=== PATIENT | female | born 1945 | race Caucasian/White ===

== ENCOUNTER 2017-01-21 14:14 | Inpatient (IN) | payer MEDICARE, MEDICAID ==
[~2017-01-21] VITALS: Ht 162.6 cm; Wt 45.0 kg
[2017-01-21] VITALS (26 sets, daily range): BP systolic 91–217; BP diastolic 55–137; PULSE 73–129; RESP 12–22; TEMP 97.6–98.5; O2SAT 95–100
[2017-01-21] MEDS ORDERED: ETOMIDATE 20 MG/10 ML VIAL ONE (14:34)
[2017-01-21] MEDS ORDERED: SUCCINYLCHOLINE CHLORIDE 200 MG/10 ML VIAL ONE (14:34)
[2017-01-21] MEDS ORDERED: PROPOFOL 1000 MG/100 ML INJ 100 ML IV SCH ×2 (14:45→20:00)
[2017-01-21] MEDS ORDERED: ETOMIDATE 20 MG/10 ML VIAL IVP ONE (14:45)
[2017-01-21] MEDS ORDERED: SODIUM CHLORIDE 0.9% FLUSH 10 ML FLUSH IVF PRN (14:45)
--- NOTE | 2017-01-21 14:59 | PD ---
HPI Chief Complaint: Psychiatric Symptoms Time Seen by Provider: 14:44 Travel History International Travel<30 days: No Contact w/Intl Traveler<30days: No Traveled to known affect area: No History of Present Illness HPI The patient was seen and examined in the presence of the nurse. This patient is brought in by paramedics under police [place] act for suicidal ideation. She apparently is depressed and wanted to kill herself. Today she drank a lot of alcohol and took a handful of Benadryl. It's unclear how many she took and at what time. She was sedated drowsy when paramedics found her but progressively worsened. She cannot provide any history or review of systems. She is unresponsive when I evaluate her. Symptoms are severe. No alleviating factors. Duration is unknown but estimating 2 hours PFSH Past Medical History Medical History: Unable to Obtain Cerebrovascular Accident: Yes Tetanus Vaccination: Unknown Influenza Vaccination: No ?: Not Past Surgical History Surgical History: Unable to Obtain Social History Alcohol Use: Yes Tobacco Use: No Substance Use: Yes (ADMITTED TO OVERUSING BENADRYL TODAY ) Allergies-Medications (Allergen,Severity, Reaction): Coded Allergies: No Known Allergies (Unverified , 01/21/17) Review of Systems ROS Limitations: Clinical Condition, Intoxication, Altered Mental Status, Unresponsive Physical Exam Narrative GENERAL: Well-nourished, well-developed patient who is unresponsive . SKIN: Focused skin assessment reveals no rash and nodules. Skin is Warm and dry. HEAD: Atraumatic. Normocephalic. EYES: Pupils equal and round. No scleral icterus. No injection or drainage. ENT: No nasal bleeding or discharge. Mucous membranes pink and moist. NECK: Trachea midline. No JVD. CARDIOVASCULAR: Regular rate and rhythm. No murmur appreciated. RESPIRATORY: No accessory muscle use. Clear to auscultation. Breath sounds equal bilaterally. GASTROINTESTINAL: Abdomen soft, non-tender, nondistended. Hepatic and splenic margins not palpable. MUSCULOSKELETAL: No obvious deformities. No clubbing. No cyanosis. No edema. NEUROLOGICAL: Patient has a GCS of 6. She withdraws to pain stimuli. She does not open her eyes or speak at all. She has no gag reflex. She cannot control her airway PSYCHIATRIC: Impossible to test mood or affect. Insight and judgment are poor . Data Data Last Documented VS Vital Signs Date Time Temp Pulse Resp B/P Pulse Ox O2 Delivery O2 Flow Rate FiO2 8/9/17 16:30 110 12 208/118 100 Ventilator 100 01/21/17 14:37 98.5 Orders Etomidate Inj (Amidate Inj) (01/21/17 14:34) Succinylcholine Inj (Quelicin Inj) (01/21/17 14:34) Chest, Single Ap (01/21/17 14:45) Arterial Blood Gas (Abg) (01/21/17 14:45) Ecg Monitoring (01/21/17 14:45) Iv Access Insert/Monitor (01/21/17 14:45) Ng Gastric Tube Insert/Monitor (01/21/17 14:45) Urinary Catheter Insert/Apply (01/21/17 14:45) Oximetry (01/21/17 14:45) Oxygen Administration (01/21/17 14:45) Etomidate Inj (Amidate Inj) (01/21/17 14:45) Sodium Chloride 0.9% Flush (Ns Flush) (01/21/17 14:45) Propofol 1000 Mg/100 Ml Inj (Diprivan 10 (01/21/17 14:45) ^ Infusion (01/21/17 14:45) RASS (01/21/17 14:45) Neurological Rass Scale YEVGENIY.Q2H (01/21/17 14:45) Iv Access Insert/Monitor (01/21/17 14:45) Complete Blood Count With Diff (01/21/17 14:45) Comprehensive Metabolic Panel (01/21/17 14:45) Alcohol (Ethanol) (01/21/17 14:45) Drug Screen, Random Urine (01/21/17 14:45) Salicylates (Aspirin) (01/21/17 14:45) Tylenol (Acetaminophen) (01/21/17 14:45) Psych Screen (01/21/17 14:49) Electrocardiogram (01/21/17 ) Admit Order (Ed Use Only) (01/21/17 16:54) Labs Laboratory Tests Test 01/21/17 01/21/17 14:50 15:36 White Blood Count 6.8 TH/MM3 Red Blood Count 5.00 MIL/MM3 Hemoglobin 15.8 GM/DL Hematocrit 47.0 % Mean Corpuscular Volume 94.0 FL Mean Corpuscular Hemoglobin 31.6 PG Mean Corpuscular Hemoglobin 33.6 % Concent Red Cell Distribution Width 13.5 % Platelet Count 212 TH/MM3 Mean Platelet Volume 7.0 FL Neutrophils (%) (Auto) 46.9 % Lymphocytes (%) (Auto) 43.1 % Monocytes (%) (Auto) 7.7 % Eosinophils (%) (Auto) 1.3 % Basophils (%) (Auto) 1.0 % Neutrophils # (Auto) 3.2 TH/MM3 Lymphocytes # (Auto) 2.9 TH/MM3 Monocytes # (Auto) 0.5 TH/MM3 Eosinophils # (Auto) 0.1 TH/MM3 Basophils # (Auto) 0.1 TH/MM3 CBC Comment DIFF FINAL Differential Comment Sodium Level 139 MEQ/L Potassium Level 3.1 MEQ/L Chloride Level 104 MEQ/L Carbon Dioxide Level 23.6 MEQ/L Anion Gap 11 MEQ/L Blood Urea Nitrogen 5 MG/DL Creatinine 0.52 MG/DL Estimat Glomerular Filtration 116 ML/MIN Rate Random Glucose 53 MG/DL Calcium Level 8.8 MG/DL Total Bilirubin 0.2 MG/DL Aspartate Amino Transf 31 U/L (AST/SGOT) Alanine Aminotransferase 40 U/L (ALT/SGPT) Alkaline Phosphatase 48 U/L Total Protein 7.6 GM/DL Albumin 3.8 GM/DL Salicylates Level 4.2 MG/DL Acetaminophen Level LESS THAN 2.0 MCG/ML Ethyl Alcohol Level 251 MG/DL Blood Gas Puncture Site LT BRACHIAL Blood Gas Patient Temperature 98.6 Blood Gas HCO3 20 mmol/L Blood Gas Base Excess -4.0 mmol/L Blood Gas Oxygen Saturation 97 % Arterial Blood pH 7.42 Arterial Blood Partial 31 mmHg Pressure CO2 Arterial Blood Partial 438 mmHG Pressure O2 Arterial Blood Oxygen Content 21.4 Vol % Arterial Blood 2.0 % Carboxyhemoglobin Arterial Blood Methemoglobin 0.6 % Blood Gas Hemoglobin 14.8 G/DL Oxygen Delivery Device VENTILATOR Blood Gas Ventilator Setting AC 12/500/PEEP5 Blood Gas Inspired Oxygen 100 % [facility] Medical Decision Making Medical Screen Exam Complete: Yes Emergency Medical Condition: Yes Medical Record Reviewed: Yes Differential Diagnosis Suicidal ideation, alcohol intoxication, Benadryl overdose, unable to control airway Narrative Course I have reviewed the patient's electronic medical record. INTUBATION: The patient was put in optimal position for the procedure. Rapid sequence intubation was initiated by me using 20 milligrams of etomidate IV. The patient was intubated with a 7.5 cuffed endotracheal tube. Tube placement was confirmed by visualization of the tube and balloon passing through the cords , capnometry and subsequent chest x-ray. Breath sounds were equal and well aerated bilaterally postintubation. No breath sounds over stomach. Patient tolerated procedure well. Saturation after intubation 100%. I reviewed the chest x-ray which shows good placement of ET tube and clear lungs 2 IVs placed CBC is normal Metabolic profile is normal other than hypokalemia of 3.1 LFTs are normal Alcohol is 251 ABG shows good oxygenation. I decreased the FiO2 to 50% after review of ABG Tylenol is negative Aspirin is 4.2 Urine drug screen ordered and pending Ordered psychiatric evaluation but obviously this cannot be done for while and she is sedated on a ventilator. She will require intensive care admission. Extended cardiac monitoring shows sinus tachycardia around 110 without ectopy I reviewed her EKG which shows sinus rhythm without ectopy or ST elevation Initially very hypertensive. I placed her on Diprivan drip. blood pressure exceeds 200 systolic.on recheck 152 systolic. Call placed to hydramatic mechanic to discuss Multiple rechecks and significant bedside time spent Critical Care Narrative Aggregate critical care time was 80 minutes. Time to perform other separately billable procedures was not included in the critical care time. My time did not include minutes spent treating any other patients simultaneously or on activities that did not directly contribute to the patient's treatment. The services I provided to this patient were to treat and/or prevent clinically significant deterioration that could result in: Brain stem herniation, cardiac arrhythmia, cardiopulmonary arrest I provided critical care services requiring my management, as noted below: Chart data review, documentation time, medication orders and management, vital sign assessments/reviewing monitor data, ordering and reviewing lab tests, ordering and interpreting/reviewing x-rays and diagnostic studies, care of the patient and discussion of the patient with the admitting physicians. Diagnosis Primary Impression: Unresponsive state Additional Impressions: Toxic encephalopathy Airway compromise Admitting Information Admitting Physician Requests: Adilson Navarro MD Jan 21, 2017 14:59
--- NOTE | 2017-01-21 15:14 | RADRPT ---
EXAM DATE/TIME: 01/21/2017 14:58 [facility] COMPARISON: No previous studies available for comparison. INDICATIONS : Short of breath. MEDICAL HISTORY : unobtainable. SURGICAL HISTORY : None. Unobtainable ENCOUNTER: Initial ACUITY: 1 day PAIN SCORE: Non-responsive. LOCATION: Bilateral chest FINDINGS: ET tube and nasogastric tube are in good position. Lungs are clear. The heart and pulmonary vascular ity are normal. The portion of the bony skeleton visualized is unremarkable. CONCLUSION: ET tube position. Mahad Carlton MD FACR on January 21, 2017 at 15:12 Board Certified Radiologist. This report was verified electronically.
[2017-01-21 15:22] LABS: AUTOMATED NEUTROPHIL # 3.2 TH/MM3 (1.8-7.7); BASOPHIL # 0.1 TH/MM3 (0-0.2); EOSINOPHIL # 0.1 TH/MM3 (0-0.4); EOSINOPHIL % 1.3 % (0.0-4.0); HEMO FLAGS DIFF FINAL; LYMPH % 43.1 % (9.0-44.0); LYMPHOCYTE # 2.9 TH/MM3 (1.0-4.8); MEAN CORPUSCULAR HEMOGLOBIN 31.6 PG (27.0-34.0); MEAN CORPUSCULAR HGB CONC 33.6 % (32.0-36.0); MONO % 7.7 % (0.0-8.0); NEUT % 46.9 % (16.0-70.0); PLATELET COUNT 212 TH/MM3 (150-450); RED CELL DISTRIBUTION WIDTH 13.5 % (11.6-17.2); WHITE BLOOD COUNT 6.8 TH/MM3 (4.0-11.0)
[2017-01-21 15:37] LABS: ANION GAP 11 MEQ/L (5-15); AST (GOT) 31 U/L (15-37); BICARBONATE 23.6 MEQ/L (21.0-32.0); BLOOD UREA NITROGEN 5 MG/DL (7-18); CHLORIDE 104 MEQ/L (98-107); GLOMERULAR FILTRATION RATE 116 ML/MIN (>89); POTASSIUM 3.1 MEQ/L (3.5-5.1); SODIUM (NA) 139 MEQ/L (136-145)
[2017-01-21 15:40] LABS: ALKALINE PHOSPHATASE 48 U/L (45-117); ALT (GPT) 40 U/L (10-53); TOTAL BILIRUBIN ADULT 0.2 MG/DL (0.2-1.0)
[2017-01-21 15:53] LABS: ACETAMINOPHEN LESS THAN 2.0 MCG/ML (10.0-30.0)
[2017-01-21 16:03] LABS: BLOOD GAS HCO3 20 mmol/L (22-26); BLOOD GAS METHEMOGLOBIN 0.6 % (0-2); BLOOD GAS O2 HGB SATURATION 97 % (90-100); BLOOD GAS OXYGEN CONTENT 21.4 Vol % (12.0-20.0); BLOOD GAS PCO2 31 mmHg (38-42); BLOOD GAS PO2 438 mmHG (61-120); BLOOD GAS TOTAL HGB 14.8 G/DL (12.0-16.0); CRITICAL VALUE NO; DRAW SITE LT BRACHIAL; FIO2 100 %; NUMBER OF ARTERIAL PUNCTURES 1; OXYGEN DEVICE VENTILATOR; STAT YES; TEMP CORR TO 98.6; ULNAR PULSE PRESENT; VENT SETTINGS AC 12/500/PEEP5
[2017-01-21] MEDS ORDERED: SODIUM CHLOR 0.9% 1000 ML INJ 1,000 ML IV SCH (17:56)
[2017-01-21] MEDS ORDERED: MISCELLANEOUS NURSING INFORMATION XX SCH ×2 (18:00→19:45)
[2017-01-21] MEDS ORDERED: RESP: ALBUTEROL 2.5 MG/IPRATROPIUM 0.5 MG NEB (PRN) INH ×2 (18:00→19:45)
[2017-01-21] MEDS ORDERED: ACETAMINOPHEN 325 MG TAB PO PRN ×2 (18:00→19:45)
[2017-01-21] MEDS ORDERED: CHLORHEXIDINE GLUCONATE 2 % 1 PACK (2 CLOTHS) TOP PRN ×2 (18:00→19:45)
[2017-01-21 18:35] LABS: AMPHETAMINE, URINE NEG (NEG); BARBITURATES, URINE NEG (NEG); COCAINE, URINE NEG (NEG)
[2017-01-21] MEDS: ENOXAPARIN SODIUM 40 MG/0.4 ML SYRINGE SQ SCH (19:25)
[2017-01-21] MEDS ORDERED: MAGNESIUM OXIDE 400 MG TAB PO PRN (19:45)
[2017-01-21] MEDS ORDERED: POTASSIUM CHLOR 40 MEQ PREMIX 100 ML IV PRN ×2 (19:45)
[2017-01-21] MEDS ORDERED: SODIUM PHOSPHATE INJ 30 MMOL in SODIUM CHLOR 0.9% 250 ML INJ 240 ML IV PRN (19:45)
[2017-01-21] MEDS ORDERED: DEXTROSE 50% IN WATER 50 ML VIAL(D50) IV PUSH PRN (19:45)
[2017-01-21] MEDS ORDERED: MAGNESIUM SULFATE INJ 4 GM in SODIUM CHLORIDE 0.9% INJ 92 ML IV PRN (19:45)
[2017-01-21] MEDS ORDERED: POTASSIUM PHOSPHATE INJ 30 MMOL in SODIUM CHLOR 0.9% 250 ML INJ 250 ML IV PRN (19:45)
[2017-01-21] MEDS ORDERED: POTASSIUM CHLOR 20 MEQ PREMIX 100 ML IV PRN ×2 (19:45)
[2017-01-21] MEDS ORDERED: ONDANSETRON HCL 4 MG/2 ML VIAL IV PRN (19:45)
[2017-01-21] MEDS ORDERED: POTASSIUM PHOSPHATE MONOBASIC 500 MG TAB PO/TUBE PRN (19:45)
[2017-01-21] MEDS ORDERED: MAGNESIUM SULFATE INJ 2 GM in SODIUM CHLORIDE 0.9% INJ 96 ML IV PRN (19:45)
[2017-01-21] MEDS ORDERED: POTASSIUM PHOSPHATE MONOBASIC 500 MG TAB PO PRN (19:45)
[2017-01-21] MEDS ORDERED: LACTATED RINGER'S 1000 ML INJ 1,000 ML IV ONE (19:45)
--- NOTE | 2017-01-21 19:53 | HHI.HP ---
HPI Service Critical Care Medicine Primary Care Physician No Primary Care Physician Admission Diagnosis unresponsive, unable to control airway,intentional OD, BA Diagnosis: Chief Complaint: altered mental status Travel History International Travel<30 Days: No Contact w/Intl Traveler <30 Da: No Traveled to Known Affected Are: No History of Present Illness This is a 71-year-old female who per report was brought in by EMS after she admitted to taking it handful of Benadryl and drinking alcohol in an attempt to kill herself. She was somnolent in the emergency department and was intubated for worsening acute hypoxic and hypercarbic respiratory failure. I evaluated the patient emergency department and no additional information can be obtained from the patient as she is obtunded and intubated. Review of Systems ROS Limitations: Clinical Condition, Intoxication, Intubated, Altered Mental Status, Unresponsive Past Family Social History Allergies: Coded Allergies: No Known Allergies (Unverified , 01/21/17) Past Medical History Unknown and unobtainable secondary to the clinical condition of the patient Past Surgical History Unknown and unobtainable secondary to the clinical condition of the patient Reported Medications Unknown and unobtainable secondary to the clinical condition of the patient Active Ordered Medications See MAR Family History Unknown and unobtainable secondary to the clinical condition of the patient Social History Unknown and unobtainable secondary to the clinical condition of the patient Physical Exam Vital Signs Vital Signs Date Time Temp Pulse Resp B/P Pulse Ox O2 Delivery O2 Flow Rate FiO2 01/21/17 19:43 88 12 147/72 100 Ventilator 50 01/21/17 19:21 100 40 01/21/17 19:00 82 12 91/65 100 Ventilator 50 01/21/17 18:59 40 01/21/17 18:51 100 40 01/21/17 18:30 102 12 172/112 100 Ventilator 50 01/21/17 18:00 97 12 100/67 100 Ventilator 50 01/21/17 17:45 104 12 111/60 100 Ventilator 50 01/21/17 17:30 101 12 190/105 100 Ventilator 50 01/21/17 17:00 81 12 107/55 100 Ventilator 100 01/21/17 16:30 110 12 208/118 100 Ventilator 100 01/21/17 16:00 112 12 217/125 100 Ventilator 100 01/21/17 15:47 100 50 01/21/17 15:40 50 01/21/17 15:30 100 12 177/104 100 Ventilator 100 01/21/17 15:00 110 12 201/125 100 Ventilator 100 01/21/17 15:00 100 01/21/17 14:45 100 100 01/21/17 14:41 12 100 Ventilator 100 01/21/17 14:41 100 Ventilator 100 01/21/17 14:37 121 6 01/21/17 14:37 98.5 129 18 212/137 95 Room Air 01/21/17 14:21 97.6 125 22 215/117 96 Physical Exam GENERAL: Elderly female, lying in bed, intubated, sedated, obtunded, critically ill HEENT: Normocephalic. Atraumatic. Pupils equal, round, reactive, conjugate. Mucous membranes are moist NECK: Trachea is midline. There is no JVD. CHEST: Equal chest rise. Clear to auscultation bilaterally. Full vent support. FiO2 40% CARDIOVASCULAR: Tachycardic rate, regular rhythm. No appreciable murmurs. ABDOMEN: Soft, nontender, nondistended. No guarding. MUSCULOSKELETAL: Pulses 2+. No peripheral edema. NEUROLOGICAL: RASS -4. Grimaces to painful stimuli. Does not open eyes. Withdrawals 4. Does not follow commands. Laboratory Laboratory Tests Test 01/21/17 01/21/17 14:50 15:36 White Blood Count 6.8 Red Blood Count 5.00 Hemoglobin 15.8 Hematocrit 47.0 Mean Corpuscular Volume 94.0 Mean Corpuscular Hemoglobin 31.6 Mean Corpuscular Hemoglobin 33.6 Concent Red Cell Distribution Width 13.5 Platelet Count 212 Mean Platelet Volume 7.0 Neutrophils (%) (Auto) 46.9 Lymphocytes (%) (Auto) 43.1 Monocytes (%) (Auto) 7.7 Eosinophils (%) (Auto) 1.3 Basophils (%) (Auto) 1.0 Neutrophils # (Auto) 3.2 Lymphocytes # (Auto) 2.9 Monocytes # (Auto) 0.5 Eosinophils # (Auto) 0.1 Basophils # (Auto) 0.1 CBC Comment DIFF FINAL Differential Comment Sodium Level 139 Potassium Level 3.1 Chloride Level 104 Carbon Dioxide Level 23.6 Anion Gap 11 Blood Urea Nitrogen 5 Creatinine 0.52 Estimat Glomerular Filtration 116 Rate Random Glucose 53 Calcium Level 8.8 Total Bilirubin 0.2 Aspartate Amino Transf 31 (AST/SGOT) Alanine Aminotransferase 40 (ALT/SGPT) Alkaline Phosphatase 48 Total Protein 7.6 Albumin 3.8 Salicylates Level 4.2 Urine Opiates Screen NEG Acetaminophen Level LESS THAN 2.0 Urine Barbiturates Screen NEG Urine Amphetamines Screen NEG Urine Benzodiazepines Screen NEG Urine Cocaine Screen NEG Urine Cannabinoids Screen NEG Ethyl Alcohol Level 251 Blood Gas Puncture Site LT BRACHIAL Blood Gas Patient Temperature 98.6 Blood Gas HCO3 20 Blood Gas Base Excess -4.0 Blood Gas Oxygen Saturation 97 Arterial Blood pH 7.42 Arterial Blood Partial 31 Pressure CO2 Arterial Blood Partial 438 Pressure O2 Arterial Blood Oxygen Content 21.4 Arterial Blood 2.0 Carboxyhemoglobin Arterial Blood Methemoglobin 0.6 Blood Gas Hemoglobin 14.8 Oxygen Delivery Device VENTILATOR Blood Gas Ventilator Setting AC 12/500/PEEP5 Blood Gas Inspired Oxygen 100 Result Diagram: 01/21/17 1450 01/21/17 1450 Imaging Last Impressions Chest X-Ray 01/21/17 1445 Signed Impressions: Service Date/Time: Saturday, January 21, 2017 14:58 - CONCLUSION: ET tube position. Mahad Carlton MD FACR Assessment and Plan Assessment and Plan Assessment: 71-year-old female with suicide attempt EtOH and Benadryl overdose. Toxic encephalopathy. Very critically ill. Toxic Encephalopathy Benadryl overdose -- q1h neuro checks -- avoid long-acting sedating meds Acute hypoxic and hypercarbic respiratory failure -- no sbt given mental status -- hob at 30 degrees -- vent bundle -- wean fio2 for spo2 > 90% -- nebs Alcohol dependence -- iv thiamine -- iv vitamins -- watch for withdraw. Intravascular volume depletion -- 2L LR bolus -- LR mivf @ 150cc/hr -- watch uop Suicidal Ideation/Suicide Attempt -- will need psych consult once extubated -- [place] Act in place start TF SCDs Lovenox pepcid Critical Care time: 40 minutes, exclusive of separately billable procedures. Kevin Helm MD Jan 21, 2017 19:53
[2017-01-21] MEDS ORDERED: fentaNYL DRIP 250 ML IV SCH (20:00)
[2017-01-21] MEDS ORDERED: CHLORHEXIDINE 0.12% (ORAL KIT) 15 ML CUP MT SCH (20:00)
[2017-01-21] MEDS: CHLORHEXIDINE 0.12% (ORAL KIT) 15 ML CUP MT SCH (20:00)
--- NOTE | 2017-01-21 20:38 | RADRPT ---
EXAM DATE/TIME: 01/21/2017 19:56 [facility] COMPARISON: No previous studies available for comparison. INDICATIONS : Suicide attempt,unresponsive RADIATION DOSE: 30.92 CTDIvol (mGy) MEDICAL HISTORY : Cerebrovascular disease. SURGICAL HISTORY : None. ENCOUNTER: Initial ACUITY: 1 day PAIN SCALE: Non-responsive LOCATION: cranial TECHNIQUE: Multiple contiguous axial images were obtained of the head. Using automated exposure control and adj ustment of the mA and/or kV according to patient size, radiation dose was kept as low as reasonably a chievable to obtain optimal diagnostic quality images. DICOM format image data is available electro nically for review and comparison. FINDINGS: CEREBRUM: The ventricles are normal for age. No evidence of midline shift, mass lesion, hemorrhage or acute in farction. No extra-axial fluid collections are seen. POSTERIOR FOSSA: The cerebellum and brainstem are intact. The 4th ventricle is midline. The cerebellopontine angle i s unremarkable. EXTRACRANIAL: The visualized portion of the orbits is intact. SKULL: The calvaria is intact. No evidence of skull fracture. CONCLUSION: Normal examination for a patient of this age. Supa To MD on January 21, 2017 at 20:32 Board Certified Radiologist. This report was verified electronically.
[2017-01-21] MEDS: LACTATED RINGER'S 1000 ML INJ 1,000 ML IV SCH (20:58)
[2017-01-21] MEDS ORDERED: MULTIVITAMIN INJ 10 ML, THIAMINE INJ 100 MG, FOLIC ACID INJ 1 MG in SODIUM CHLOR 0.45% ... IV ONE (21:00)
[2017-01-21] MEDS ORDERED: ENOXAPARIN SODIUM 40 MG/0.4 ML SYRINGE SQ SCH (21:00)
[2017-01-21] MEDS ORDERED: RESP: ALBUTEROL 2.5 MG/IPRATROPIUM 0.5 MG NEB (SCH) NEB (22:00)
[2017-01-22] VITALS (29 sets, daily range): BP systolic 99–172; BP diastolic 56–87; PULSE 57–111; RESP 15–27; TEMP 97.5–98.3; O2SAT 96–100
[2017-01-22] MEDS ORDERED: THIAMINE INJ 100 MG in SODIUM CHLORIDE 0.9% INJ 100 ML IV SCH (01:45)
[2017-01-22] MEDS: RESP: ALBUTEROL 2.5 MG/IPRATROPIUM 0.5 MG NEB (SCH) INH ×4 (03:27→21:51)
[2017-01-22] MEDS ORDERED: CHLORHEXIDINE GLUCONATE 2 % 1 PACK (2 CLOTHS) TOP SCH ×2 (04:00)
--- NOTE | 2017-01-22 04:55 | RADRPT ---
EXAM DATE/TIME: 01/22/2017 03:27 [facility] COMPARISON: CHEST SINGLE AP, January 21, 2017, 14:58. INDICATIONS : Shortness of breath. MEDICAL HISTORY : Cerebrovascular disease. SURGICAL HISTORY : None. ENCOUNTER: Subsequent ACUITY: 2 days PAIN SCORE: Non-responsive. LOCATION: Bilateral chest FINDINGS: Hyperinflation again seen. Endotracheal tube and enteric tube again noted. Cardiomegaly. Clear lungs. CONCLUSION: No significant change has occurred. Mele Santo MD on January 22, 2017 at 4:53 Board Certified Radiologist. This report was verified electronically.
[2017-01-22] MEDS: FAMOTIDINE 20 MG TAB PO SCH ×2 (04:58→10:08)
[2017-01-22] MEDS: DOCUSATE SODIUM 50 MG/SENNA 8.6 MG TAB PO SCH ×2 (04:59→10:08)
[2017-01-22] MEDS: LACTATED RINGER'S 1000 ML INJ 1,000 ML IV SCH ×2 (05:00→16:00)
[2017-01-22] MEDS: INSULIN NovoLIN REGULAR SUPPLEMENTAL SCALE SQ SCH ×4 (06:00→17:21)
[2017-01-22 06:37] LABS: BLOOD GAS BASE EXCESS -1.2 mmol/L (-2-2); BLOOD GAS HCO3 22 mmol/L (22-26); BLOOD GAS METHEMOGLOBIN 1.2 % (0-2); BLOOD GAS O2 HGB SATURATION 97 % (90-100); BLOOD GAS OXYGEN CONTENT 17.4 Vol % (12.0-20.0); BLOOD GAS PCO2 32 mmHg (38-42); BLOOD GAS PO2 190 mmHg (61-120); BLOOD GAS TOTAL HGB 12.5 G/DL (12.0-16.0); CRITICAL VALUE NO; DRAW SITE LT RADIAL; FIO2 40 %; NUMBER OF ARTERIAL PUNCTURES 1; OXYGEN DEVICE VENTILATOR; STAT NO; TEMP CORR TO 98.6; ULNAR PULSE PRESENT; VENT SETTINGS AC 15/500/5PEEP
[2017-01-22 06:52] LABS: AUTOMATED NEUTROPHIL # 5.2 TH/MM3 (1.8-7.7); BASOPHIL # 0.1 TH/MM3 (0-0.2); BASOPHIL % 0.6 % (0.0-2.0); EOSINOPHIL # 0.1 TH/MM3 (0-0.4); EOSINOPHIL % 0.8 % (0.0-4.0); HEMATOCRIT 40.2 % (35.0-46.0); HEMO FLAGS DIFF FINAL; LYMPH % 35.4 % (9.0-44.0); LYMPHOCYTE # 3.4 TH/MM3 (1.0-4.8); MEAN CELL VOLUME 94.4 FL (80.0-100.0); MEAN CORPUSCULAR HEMOGLOBIN 31.6 PG (27.0-34.0); MEAN CORPUSCULAR HGB CONC 33.5 % (32.0-36.0); MONO % 9.5 % (0.0-8.0); NEUT % 53.7 % (16.0-70.0); PLATELET COUNT 177 TH/MM3 (150-450); RED BLOOD COUNT 4.26 MIL/MM3 (4.00-5.30); RED CELL DISTRIBUTION WIDTH 13.7 % (11.6-17.2); WHITE BLOOD COUNT 9.6 TH/MM3 (4.0-11.0)
[2017-01-22 07:21] LABS: ANION GAP 10 MEQ/L (5-15); AST (GOT) 23 U/L (15-37); BICARBONATE 24.3 MEQ/L (21.0-32.0); BLOOD UREA NITROGEN 6 MG/DL (7-18); CHLORIDE 110 MEQ/L (98-107); GLOMERULAR FILTRATION RATE 124 ML/MIN (>89); POTASSIUM 3.8 MEQ/L (3.5-5.1); SODIUM (NA) 144 MEQ/L (136-145)
[2017-01-22 07:23] LABS: ALKALINE PHOSPHATASE 33 U/L (45-117); ALT (GPT) 29 U/L (10-53); TOTAL BILIRUBIN ADULT 0.5 MG/DL (0.2-1.0)
[2017-01-22] MEDS: CHLORHEXIDINE 0.12% (ORAL KIT) 15 ML CUP MT SCH (07:39)
[2017-01-22] MEDS ORDERED: PANTOPRAZOLE SODIUM 40 MG VIAL IV SCH (09:00)
[2017-01-22] MEDS: MULTIVITAMIN TAB PO SCH (10:08)
--- NOTE | 2017-01-22 11:15 | EKG ---
Date Performed: 01/21/2017 Time Performed: 16:33:19 PTAGE: 71 years EKG: SINUS TACHYCARDIA POSSIBLE RIGHT ATRIAL ENLARGEMENT LEFT ATRIAL ENLARGEMENT ABNORMAL ECG NO PREVIOUS TRACING DOCTOR: Neftali Aguirre Interpretating Date/Time 01/22/2017 11:12:50
--- NOTE | 2017-01-22 12:13 | HHI.CCPN ---
Subjective Remarks/Hospital Course This is a 71-year-old female who per report was brought in by EMS after she admitted to taking it handful of Benadryl and drinking alcohol in an attempt to kill herself. She was somnolent in the emergency department and was intubated for worsening acute hypoxic and hypercarbic respiratory failure. Dr. Ly evaluated the patient emergency department and no additional information can be obtained from the patient as she is obtunded and intubated. Subjective 01/22: Afebrile. Hemodynamically stable. Awake and alert. We'll attempt spontaneous breathing trial today possible extubation. Objective Vital Signs Date Time Temp Pulse Resp B/P Pulse Ox O2 Delivery O2 Flow Rate FiO2 01/22/17 12:00 98.3 62 20 136/64 100 01/22/17 11:29 40 01/21/17 20:59 Ventilator Intake and Output 01/21/17 01/21/17 01/22/17 08:00 16:00 00:00 Output Total 1600 ml Balance -1600 ml Result Diagram: 01/22/17 0445 01/22/17 0449 Imaging Last Impressions Chest X-Ray 01/22/17 0600 Signed Impressions: Service Date/Time: January 03:27 - CONCLUSION: No significant change has occurred. Mele Santo MD Head CT 01/21/17 0000 Signed Impressions: Service Date/Time: Saturday, January 21, 2017 19:56 - CONCLUSION: Normal examination for a patient of this age. Supa To MD Objective Remarks GENERAL: Elderly female, lying in bed, intubated orotracheally HEENT: Normocephalic. Atraumatic. Pupils equal, round, reactive, conjugate. Mucous membranes are moist NECK: Trachea is midline. There is no JVD. CHEST: Equal chest rise. Clear to auscultation bilaterally. No wheezes rales or rhonchi CARDIOVASCULAR: RRR. S1, S2 no S4. No appreciable murmurs. ABDOMEN: Soft, nontender, nondistended. No guarding. MUSCULOSKELETAL: Pulses 2+. No peripheral edema. NEUROLOGICAL: Opens eyes. Follows commands. Moves all 4 extremities spontaneously. A/P Assessment and Plan Neuro/psych Toxic metabolic Encephalopathy likely secondary to EtOH/diphenhydramine overdose Suicidal Ideation/Suicide Attempt Currently on propofol at 30 mg/kg/m for sedation while intubated Goal of RA SS - 2 Daily sedation vacation -- will need psych consult once extubated -- [place] Act in place Benadryl overdose -- q1h neuro checks -- avoid long-acting sedating meds Continue thiamine folate and multivitamin daily Acetaminophen for fever/pain 1-10 Resp: Acute hypoxic and hypercarbic respiratory failure ACV 15/500/5/35 -- hob at 30 degrees -- vent bundle Spontaneous breathing trials today --Albuterol/ipratropium aerosols every 6 hours/every 2 hours when necessary Cardiac Currently on LR to 100 cc an hour. Not requiring vasopressors and/or antihypertensives GI - Hypoalbuminemia Currently on Jevity 1.5 goal 50 cc an hour Famotidine for GI prophylaxis Docusate sodium/senna for bowel regimen Natarajan catheter in place ID Monitor for infection Heme CBC within normal limits. Muscle skeletal PT/OT evaluate and treat FEN Replace electrolytes as clinically indicated DVT - Enoxaparin GI - Famodipine Level III follow-up Maverick Rubio MD Jan 22, 2017 12:12 -- 2L LR bolus -- LR mivf @ 150cc/hr -- watch uop Suicidal Ideation/Suicide Attempt -- will need psych consult once extubated -- [place] Act in place start TF SCDs Lovenox pepcid Critical Care time: 40 minutes, exclusive of separately billable procedures. Maverick Rubio MD Jan 22, 2017 12:12
[2017-01-22] MEDS ORDERED: SODIUM CHLORID 0.9% 500 ML INJ 500 ML IV ONE (17:30)
[2017-01-22] MEDS ORDERED: LABETALOL HCL 100 MG/20 ML VIAL IV PUSH PRN (17:30)
[2017-01-22] MEDS ORDERED: NITROGLYCERIN 2% OINT 1 GM PACKET TOPICAL PRN (17:30)
[2017-01-22] MEDS ORDERED: cloNIDine HCL 0.1 MG TAB PO ONE (18:00)
[2017-01-23] VITALS (19 sets, daily range): BP systolic 136–172; BP diastolic 66–91; PULSE 72–106; RESP 18–55; TEMP 97.6–98.7; O2SAT 91–100
[2017-01-23] MEDS: DOCUSATE SODIUM 50 MG/SENNA 8.6 MG TAB PO SCH ×3 (00:44→21:14)
[2017-01-23] MEDS: FAMOTIDINE 20 MG TAB PO SCH ×3 (00:44→21:14)
[2017-01-23] MEDS: ENOXAPARIN SODIUM 40 MG/0.4 ML SYRINGE SQ SCH ×2 (00:45→21:14)
[2017-01-23] MEDS: RESP: ALBUTEROL 2.5 MG/IPRATROPIUM 0.5 MG NEB (SCH) INH ×2 (03:37→08:04)
[2017-01-23 05:22] LABS: HEMATOCRIT 36.7 % (35.0-46.0); MEAN CELL VOLUME 92.9 FL (80.0-100.0); MEAN CORPUSCULAR HEMOGLOBIN 32.3 PG (27.0-34.0); MEAN CORPUSCULAR HGB CONC 34.7 % (32.0-36.0); PLATELET COUNT 142 TH/MM3 (150-450); RED BLOOD COUNT 3.95 MIL/MM3 (4.00-5.30); RED CELL DISTRIBUTION WIDTH 13.7 % (11.6-17.2); REVIEW FLAG FINAL; WHITE BLOOD COUNT 9.2 TH/MM3 (4.0-11.0)
[2017-01-23 05:45] LABS: MAGNESIUM 1.6 MG/DL (1.5-2.5)
[2017-01-23 06:00] LABS: POTASSIUM 2.8 MEQ/L (3.5-5.1)
[2017-01-23] MEDS: CHLORHEXIDINE 0.12% (ORAL KIT) 15 ML CUP MT SCH (08:00)
--- NOTE | 2017-01-23 08:52 | HHI.CCPN ---
Subjective Remarks/Hospital Course This is a 71-year-old female who per report was brought in by EMS after she admitted to taking it handful of Benadryl and drinking alcohol in an attempt to kill herself. She was somnolent in the emergency department and was intubated for worsening acute hypoxic and hypercarbic respiratory failure. Dr. Ly evaluated the patient emergency department and no additional information can be obtained from the patient as she is obtunded and intubated. Subjective 01/22: Afebrile. Hemodynamically stable. Awake and alert. We'll attempt spontaneous breathing trial today possible extubation. 01/23: Extubated yesterday tolerating well. Following commands 4. Potassium is 2.6 and magnesium 1.6 getting replaced. Appreciate psych consult Objective Vital Signs Date Time Temp Pulse Resp B/P Pulse Ox O2 Delivery O2 Flow Rate FiO2 01/23/17 08:04 98 Nasal Cannula 1.00 01/23/17 06:00 97 01/23/17 04:00 97.9 18 157/77 01/22/17 15:10 40 Intake and Output 01/22/17 01/22/17 01/23/17 08:00 16:00 00:00 Intake Total 1997 ml 1084 ml 677 ml Output Total 375 ml 250 ml 1950 ml Balance 1622 ml 834 ml -1273 ml Result Diagram: 01/23/17 0442 01/23/17 0442 Imaging Last Impressions Chest X-Ray 01/22/17 0600 Signed Impressions: Service Date/Time: January 03:27 - CONCLUSION: No significant change has occurred. Mele Santo MD Head CT 01/21/17 0000 Signed Impressions: Service Date/Time: Saturday, January 21, 2017 19:56 - CONCLUSION: Normal examination for a patient of this age. Supa To MD Objective Remarks GENERAL: Elderly female, lying in bed, on NC HEENT: Normocephalic. Atraumatic. Pupils equal, round, reactive, conjugate. Mucous membranes are moist NECK: Trachea is midline. There is no JVD. CHEST: Equal chest rise. Clear to auscultation bilaterally. No wheezes rales or rhonchi CARDIOVASCULAR: RRR. S1, S2 no S4. No appreciable murmurs. ABDOMEN: Soft, nontender, nondistended. No guarding. MUSCULOSKELETAL: Pulses 2+. No peripheral edema. NEUROLOGICAL: Follows commands. Moves all 4 extremities spontaneously, no focal deficits. A/P Assessment and Plan Neuro/psych Toxic metabolic Encephalopathy likely secondary to EtOH/diphenhydramine overdose Suicidal Ideation/Suicide Attempt Alcohol dependence Psych consult appreciated. However not stable for med psych transfer yet due to severe electrolyte disturbances -- [place] Act in place Benadryl, alcohol overdose -- q1h neuro checks -- avoid long-acting sedating meds Continue thiamine folate and multivitamin daily Drinks 3-5 beers daily and 12 pk on weekends Acetaminophen for fever/pain 1-10 Resp: Acute hypoxic and hypercarbic respiratory failure Extubated yesterday, tolerating well -- vent bundle --Albuterol/ipratropium aerosols every 2 hours when necessary Cardiac Currently on LR to 100 cc an hour. DC Not requiring vasopressors and/or antihypertensives GI - Hypoalbuminemia Regular diet Famotidine for GI prophylaxis Docusate sodium/senna for bowel regimen Natarajan catheter in place-DC ID Monitor for infection Heme CBC within normal limits. Muscle skeletal PT/OT evaluate and treat FEN Replace electrolytes as clinically indicated DVT - Enoxaparin GI - Famodipine Level II follow-up Consult [facility] to assume care in am, however patient is not stable for med psych admission today due to severe electrolyte disturbances. Once these are corrected can transfer to med psych or medical floor Pepe Estrada MD Jan 23, 2017 08:52
[2017-01-23] MEDS ORDERED: POTASSIUM CHLOR 40 MEQ PREMIX 100 ML IV ONE (09:00)
[2017-01-23] MEDS ORDERED: POTASSIUM CHLORIDE 25 MEQ EFFERVESCENT TAB PO ONE (09:00)
[2017-01-23] MEDS: MULTIVITAMIN TAB PO SCH (09:37)
[2017-01-23] MEDS: MAGNESIUM SULFATE 1 GM PREMIX 100 ML IV SCH ×2 (09:38→10:44)
--- NOTE | 2017-01-23 09:49 | PD.PSY.CON ---
Provisional Diagnosis Admission Date Jan 21, 2017 at 16:56 [place] I. Major depressive disorder, recurrent, without psychosis, alcohol use disorder, anxiety [place] II. Deferred [place] III. COPD, HTN [place] IV. Increased alcohol use, [place] V. 40 History of Present Illness Service Psychiatry Consult Requested By Reason for Consult Suicidal attempt Primary Care Physician No Primary Care Physician HPI The patient is a 71-year-old woman, domiciled in [place] with her son , also, supported by skilled nursing benefit, with psychiatric history of major depressive disorder, 2 previous psychiatric hospitalizations, the last hospitalization was 4 years ago, she doesn't have an established outpatient care , previous suicidal attempts, she is on Prozac 40 mg, trazodone 100 mg prescribed by PCP, medical history of COPD, HTN, who per report was brought in by EMS after she admitted to taking it handful of Benadryl and drinking alcohol in an attempt to kill herself. She was somnolent in the emergency department and was intubated for worsening acute hypoxic and hypercarbic respiratory failure. Dr. Ly evaluated the patient emergency department and no additional information can be obtained from the patient as she is obtunded and intubated. Patient was seen today for psychiatric evaluation, patient is calm, cooperative and pleasant. Port's ongoing depression for the last month, she says that she feels that she is giving up. Feels that her life is going downhill, she cannot identify an acute stressor for this depression. But, she says that she feels useless, isolated, very lonely, with increased sense of worthlessness, decreased sensitivity to rejection and frustration, frequent suicidal thoughts with a plan of overdosing. She also has been increasing her alcohol use in order to "forget everything and going to sleep". Patient says that yesterday when she overdosed she was drunk "but I wanted to ". At This moment patient says that "I am blessed to be alive, but I needed help". Patient is fully oriented 3, with full attention span, no concentration deficits, no fluctuation of consciousness. Patient denies the use of illicit drugs, she reports increased use of alcohol in the last 2 months. She says that she takes 3-4 beers per day. She has history of withdrawal in the past, but she hasn't have any withdrawal symptoms in the last months. No withdrawal symptoms visible at this moment. Review of Systems Constitutional: DENIES: Diaphoretic episodes, Fatigue, Fever, Weight gain, Weight loss, Chills, Dizziness, Change in appetite, Night Sweats Endocrine: DENIES: Abnorml menstrual pattern, Heat/cold intolerance, Polydipsia , Polyuria, Polyphagia Eyes: DENIES: Blurred vision, Diplopia, Eye inflammation, Eye pain, Vision loss , Photosensitivity, Double Vision Ears, nose, mouth, throat: DENIES: Tinnitus, Hearing loss, Vertigo, Nasal discharge, Oral lesions, Throat pain, Hoarseness, Ear Pain, Running Nose, Epistaxis, Sinus Pain, Toothache, Odynophagia Respiratory: DENIES: Apneas, Cough, Snoring, Wheezing, Hemoptysis, Sputum production, Shortness of breath Cardiovascular: DENIES: Chest pain, Palpitations, Syncope, Dyspnea on Exertion , PND, Lower Extremity Edema, Orthopnea, Claudication Gastrointestinal: DENIES: Abdominal pain, Black stools, Bloody stools, Constipation, Diarrhea, Nausea, Vomiting, Difficulty Swallowing, Anorexia Genitourinary: DENIES: Abnormal vaginal bleeding, Dysmenorrhea, Dyspareunia, Sexual dysfunction, Urinary frequency, Urinary incontinence, Urgency, Hematuria , Dysuria, Nocturia, Vaginal discharge Musculoskeletal: DENIES: Joint pain, Muscle aches, Stiffness, Joint Swelling, Back pain, Neck pain Integumentary: DENIES: Abnormal pigmentation, Pruritus, Rash, Nail changes, Breast masses, Breast skin changes, Nipple discharge Hematologic/lymphatic: DENIES: Bruising, Lymphadenopathy Immunologic/allergic: DENIES: Eczema, Urticaria Neurologic: DENIES: Abnormal gait, Headache, Localized weakness, Paresthesias, Seizures, Speech Problems, Tremor, Poor Balance Psychiatric: COMPLAINS OF: Depression, Suicidal Ideation, DENIES: Anxiety, Confusion, Mood changes, Hallucinations, Agitation, Homicidal Ideation, Delusions Past Family Social History Coded Allergies: No Known Allergies (Unverified , 01/21/17) Current Medications Medications (Trade) Dose Ordered Sig/Erick Route Start Time Stop Time Status Last Admin (NS Flush) 2 ml UNSCH PRN IVF 01/21/17 14:45 (Lovenox Inj) 40 mg Q24H SQ 01/21/17 20:00 01/23/17 00:45 (Peridex 0.12% Liq) 15 ml BID@08,20 MT 01/21/17 20:00 01/22/17 07:39 Magnesium Oxide 800 mg 800 mg UNSCH PRN PO 01/21/17 19:45 Magnesium Sulfate 4 gm/Sodium Chloride 100 ml @ 50 mls/hr UNSCH PRN IV 01/21/17 19:45 Magnesium Sulfate 2 gm/Sodium Chloride 100 ml @ 50 mls/hr UNSCH PRN IV 01/21/17 19:45 Potassium Chloride 100 ml @ 50 mls/hr Q2H PRN IV 01/21/17 19:45 Potassium Chloride 100 ml @ 50 mls/hr Q2H PRN IV 01/21/17 19:45 Potassium Chloride 100 ml @ 50 mls/hr Q2H PRN IV 01/21/17 19:45 (KCl 40 Meq Premix Inj) 100 ml @ 25 mls/hr UNSCH PRN IV 01/21/17 19:45 (K-Phos) 2,000 mg Q4H PRN PO 01/21/17 19:45 Potassium Phosphate 2000 mg 2,000 mg UNSCH PRN PO/TUBE 01/21/17 19:45 Potassium Phosphate 30 mmol/ Sodium Chloride 260 ml @ 42 mls/hr UNSCH PRN IV 01/21/17 19:45 (Sodium Phosphate Inj/NS 250 ml Inj) 250 ml @ 42 mls/hr UNSCH PRN IV 01/21/17 19:45 (D50w (Vial) Inj) 25 ml UNSCH PRN IV PUSH 01/21/17 19:45 Insulin Human Regular 1 1 Q6HR SQ 01/22/17 00:00 (Thiamine Inj/NS Inj) 101 ml @ 101 mls/hr Q24H IV 01/22/17 01:45 01/24/17 02:44 01/22/17 04:58 (Vitamin B1) 100 mg DAILY PO 01/25/17 09:00 Multivitamins 1 tab 1 tab DAILY PO 01/22/17 09:00 01/22/17 10:08 (Lr 1000 ml Inj) 1,000 ml @ 100 mls/hr Q10H IV 01/21/17 20:00 Hold 01/22/17 05:00 (Tylenol) 650 mg Q6H PRN PO 01/21/17 19:45 (Pepcid) 20 mg Q12HR PO 01/21/17 21:00 01/23/17 00:44 (Zofran Inj) 4 mg Q6H PRN IV 01/21/17 19:45 Miscellaneous Information 1 Q361D XX 01/21/17 19:45 (Chlorhexidine 2% Cloth) 3 pack Taper DAILY@04 TOP 01/22/17 04:00 01/18/18 03:59 01/22/17 04:00 (Chlorhexidine 2% Cloth) 3 pack UNSCH PRN TOP 01/21/17 19:45 (Myriam-Colace) 1 tab BID PO 01/21/17 21:00 01/23/17 00:44 (Trandate Inj) 10 mg Q1H PRN IV PUSH 01/22/17 17:30 Nitroglycerin 2 inch 2 inch Q6H PRN TOPICAL 01/22/17 17:30 Potassium Chloride 100 ml @ 25 mls/hr BOLUS ONCE IV 01/23/17 09:00 01/23/17 12:59 (Magnesium Sulfate 1 Gm Premix) 100 ml @ 100 mls/hr Q1H IV 01/23/17 09:00 01/23/17 10:59 Family History Patient says her mother was bipolar, and she has a sister with bipolar disorder Social History Patient was born and raised in [place], she has been living with her son in [place] in the last 6 months, she is , she has 3 kids, supported by skilled nursing benefits, her highest level of education is high school Patient's Strengths (min. 2) Verbal communication, family support, good insight Physical Exam No withdrawal present, no EPS, no tremors, no pupillaries abnormalities present. Vital Signs Vital Signs Date Time Temp Pulse Resp B/P Pulse Ox O2 Delivery O2 Flow Rate FiO2 01/23/17 08:04 98 Nasal Cannula 1.00 01/23/17 08:00 98.5 93 24 165/78 01/22/17 15:10 40 I/O 01/22/17 01/22/17 01/23/17 08:00 16:00 00:00 Intake Total 1997 ml 1084 ml 677 ml Output Total 375 ml 250 ml 1950 ml Balance 1622 ml 834 ml -1273 ml Lab Results Laboratory Tests Test 01/21/17 01/21/17 14:50 15:36 White Blood Count 6.8 Red Blood Count 5.00 Hemoglobin 15.8 Hematocrit 47.0 Mean Corpuscular Volume 94.0 Mean Corpuscular Hemoglobin 31.6 Mean Corpuscular Hemoglobin 33.6 Concent Red Cell Distribution Width 13.5 Platelet Count 212 Mean Platelet Volume 7.0 Neutrophils (%) (Auto) 46.9 Lymphocytes (%) (Auto) 43.1 Monocytes (%) (Auto) 7.7 Eosinophils (%) (Auto) 1.3 Basophils (%) (Auto) 1.0 Neutrophils # (Auto) 3.2 Lymphocytes # (Auto) 2.9 Monocytes # (Auto) 0.5 Eosinophils # (Auto) 0.1 Basophils # (Auto) 0.1 CBC Comment DIFF FINAL Differential Comment Sodium Level 139 Potassium Level 3.1 Chloride Level 104 Carbon Dioxide Level 23.6 Anion Gap 11 Blood Urea Nitrogen 5 Creatinine 0.52 Estimat Glomerular Filtration 116 Rate Random Glucose 53 Calcium Level 8.8 Total Bilirubin 0.2 Aspartate Amino Transf 31 (AST/SGOT) Alanine Aminotransferase 40 (ALT/SGPT) Alkaline Phosphatase 48 Total Protein 7.6 Albumin 3.8 Salicylates Level 4.2 Urine Opiates Screen NEG Acetaminophen Level LESS THAN 2.0 Urine Barbiturates Screen NEG Urine Amphetamines Screen NEG Urine Benzodiazepines Screen NEG Urine Cocaine Screen NEG Urine Cannabinoids Screen NEG Ethyl Alcohol Level 251 Blood Gas Puncture Site LT BRACHIAL Blood Gas Patient Temperature 98.6 Blood Gas HCO3 20 Blood Gas Base Excess -4.0 Blood Gas Oxygen Saturation 97 Arterial Blood pH 7.42 Arterial Blood Partial 31 Pressure CO2 Arterial Blood Partial 438 Pressure O2 Arterial Blood Oxygen Content 21.4 Arterial Blood 2.0 Carboxyhemoglobin Arterial Blood Methemoglobin 0.6 Blood Gas Hemoglobin 14.8 Oxygen Delivery Device VENTILATOR Blood Gas Ventilator Setting AC 12/500/PEEP5 Blood Gas Inspired Oxygen 100 Mental Status Examination Appearance Elderly woman, age appearing, [facility], good hygiene, she is calm, cooperative, pleasant Speech: Slow Memory: Unremarkable Thought Process: Goal Directed, Linear Thought Content: Unremarkable Language Fluent and spontaneous Fund of Knowledge Adequate for her level of education Hallucination Type: None Attention and Concentration: Good Suicidal Ideation: Yes Previous Suicide Attempts: Yes Homicidal Ideation: No Insight: Good Affect: Sad Mood: Sad Motor Activity: Normal gait Assessment & Plan Problem List: (1) Major depressive disorder, recurrent Assessment & Plan: The patient is a 71-year-old woman, domiciled in [place] with her son, also, supported by skilled nursing benefit, with psychiatric history of major depressive disorder, 2 previous psychiatric hospitalizations, the last hospitalization was 4 years ago, she doesn't have an established outpatient care, previous suicidal attempts, she is on Prozac 40 mg, trazodone 100 mg prescribed by PCP, medical history of COPD, HTN, who per report was brought in by EMS after she admitted to taking it handful of Benadryl and drinking alcohol in an attempt to kill herself. She was somnolent in the emergency department and was intubated for worsening acute hypoxic and hypercarbic respiratory failure. Dr. Ly evaluated the patient emergency department and no additional information can be obtained from the patient as she is obtunded and intubated. Patient was seen today for psychiatric evaluation, patient is calm, cooperative. Patient reports several weeks of ongoing depressive symptoms, that have increased in severity, intensity and frequency in the last week. Symptoms consist on decreased appetite, lost with, increased sensitivity to rejection and frustration, hopelessness, helplessness, sense of worthlessness, insomnia, intrusive suicidal thoughts and a recent suicidal attempt by overdosing with Benadryl and alcohol. Patient is unable to identify an acute stressor. Symptoms of depression may be exacerbated by increased use of alcohol. Will order TSH, T3, T4 to completely rule out medical reasons of depression exacerbation. Patient is an acute danger to herself due to her level of depression and recent lethal suicidal attempt. He needs psychiatric hospitalization for stabilization. No indications of psychotropic at this moment. Would consider to transfer patient to med psych unit. Consult appreciated. ICD Code: F33.9 Assessment & Plan Estimated LOS: days Trae Pan MD Jan 23, 2017 09:49
[2017-01-23] MEDS: INSULIN NovoLIN REGULAR SUPPLEMENTAL SCALE SQ SCH ×3 (11:44→17:18)
[2017-01-23 19:06] LABS: MAGNESIUM 2.2 MG/DL (1.5-2.5); POTASSIUM 3.8 MEQ/L (3.5-5.1)
[2017-01-23 22:21] LABS: FREE T3 2.68 PG/ML (2.18-3.98); FREE T4 1.25 NG/DL (0.76-1.46)
[2017-01-24] VITALS (8 sets, daily range): BP systolic 124–160; BP diastolic 61–95; PULSE 86–105; RESP 18–21; TEMP 97.4–98; O2SAT 96
[2017-01-24] MEDS: INSULIN NovoLIN REGULAR SUPPLEMENTAL SCALE SQ SCH ×2 (06:00→12:00)
[2017-01-24 06:12] LABS: HEMATOCRIT 42.1 % (35.0-46.0); MEAN CELL VOLUME 93.3 FL (80.0-100.0); MEAN CORPUSCULAR HGB CONC 34.3 % (32.0-36.0); PLATELET COUNT 150 TH/MM3 (150-450); RED BLOOD COUNT 4.52 MIL/MM3 (4.00-5.30); RED CELL DISTRIBUTION WIDTH 13.8 % (11.6-17.2); REVIEW FLAG FINAL; WHITE BLOOD COUNT 7.4 TH/MM3 (4.0-11.0)
[2017-01-24 06:57] LABS: BICARBONATE 23.4 MEQ/L (21.0-32.0); MAGNESIUM 2.1 MG/DL (1.5-2.5); POTASSIUM 3.8 MEQ/L (3.5-5.1)
[2017-01-24] MEDS: CHLORHEXIDINE 0.12% (ORAL KIT) 15 ML CUP MT SCH (07:50)
[2017-01-24] MEDS: DOCUSATE SODIUM 50 MG/SENNA 8.6 MG TAB PO SCH (07:51)
[2017-01-24] MEDS: MULTIVITAMIN TAB PO SCH (07:51)
[2017-01-24] MEDS: FAMOTIDINE 20 MG TAB PO SCH (07:51)
--- NOTE | 2017-01-24 10:19 | HHI.PR ---
Subjective Remarks In the bed, feels better today. Lytes are normal. Says she is eating fairly well. No n/v/d/c. Some nonproductive cough. No fever or chills. Objective Vitals Vital Signs Date Time Temp Pulse Resp B/P Pulse Ox O2 Delivery O2 Flow Rate FiO2 01/24/17 07:10 96 21 01/24/17 06:00 97 01/24/17 04:00 97 01/24/17 04:00 97.4 105 18 160/95 96 01/24/17 02:00 97 01/24/17 00:00 97 01/24/17 00:00 98.0 94 18 150/74 96 01/23/17 22:00 97 01/23/17 20:45 95 01/23/17 20:00 97 01/23/17 20:00 97.6 100 24 172/91 96 01/23/17 18:00 98 01/23/17 16:00 95 01/23/17 16:00 98.7 97 30 168/82 94 01/23/17 15:00 97 36 157/79 95 01/23/17 14:00 97 01/23/17 14:00 100 38 154/77 97 01/23/17 13:00 98 27 141/70 96 01/23/17 12:00 99 01/23/17 12:00 98.0 95 36 138/71 95 01/23/17 11:00 93 40 154/76 98 I/O 01/23/17 01/23/17 01/23/17 01/24/17 01/24/17 01/24/17 07:00 15:00 23:00 07:00 15:00 23:00 Intake Total 150 ml 1249 ml 250 ml 300 ml Output Total 1300 ml 1700 ml 450 ml 850 ml Balance -1150 ml -451 ml -200 ml -550 ml Intake Oral 50 ml 600 ml 250 ml 300 ml IV Total 100 ml 649 ml 0 ml Output Urine Total 1300 ml 1700 ml 450 ml 850 ml # Bowel Movements 0 Result Diagram: 01/24/1751801/24/17518 Imaging Last Impressions Chest X-Ray 01/22/17 06 Signed Impressions: Service Date/Time: January 03:27 - CONCLUSION: No significant change has occurred. Mele Santo MD Head CT 01/21/17 0000 Signed Impressions: Service Date/Time: Saturday, January 21, 2017 19:56 - CONCLUSION: Normal examination for a patient of this age. Supa To MD Objective Remarks GENERAL: 71 yo female, lying in bed, doesn't appear in acute distress. HEENT: Normocephalic. Atraumatic. Pupils equal, round, reactive, conjugate. Mucous membranes are moist NECK: Trachea is midline. There is no JVD. CHEST: Equal chest rise. Clear to auscultation bilaterally. No wheezes rales or rhonchi CARDIOVASCULAR: RRR. S1, S2 no S4. No appreciable murmurs. ABDOMEN: Soft, nontender, nondistended. No guarding. MUSCULOSKELETAL: Pulses 2+. No peripheral edema. NEUROLOGICAL: Follows commands. Moves all 4 extremities spontaneously, no focal deficits. A/P Assessment and Plan Neuro/psych Toxic metabolic Encephalopathy likely secondary to EtOH/diphenhydramine overdose Suicidal Ideation/Suicide Attempt Alcohol dependence Psych consult appreciated. Stable for med psych transfer. Electrolyte disturbances resolved. patient is eating. Yolis Tomlinson, alcohol overdose Neuro checks -- avoid long-acting sedating meds Continue thiamine folate and multivitamin daily Drinks 3-5 beers daily and 12 pk on weekends Acetaminophen for fever/pain 1-10 Resp: Acute hypoxic and hypercarbic respiratory failure. Resolved. Extubated 01/22/17, tolerating well, on room air at this time. Albuterol/ipratropium aerosols when necessary Cardiac Currently on LR to 100 cc an hour. DC Not requiring vasopressors and/or antihypertensives GI - Hypoalbuminemia Regular diet Famotidine for GI prophylaxis Docusate sodium/senna for bowel regimen Natarajan catheter in place-DC ID Monitor for infection Heme CBC within normal limits. Muscle skeletal PT/OT evaluate and treat FEN Replace electrolytes as clinically indicated DVT - Enoxaparin GI - Famotidine Stable medically to be discharged to med/psych Lupe Castle MD Jan 24, 2017 10:19
[2017-01-24] MEDS ORDERED: GNP100TA3 PO (10:22)
--- NOTE | 2017-01-24 10:23 | HHI.DS ---
Discharge Summary Admission Date Jan 21, 2017 at 16:56 Discharge Date: Jan 24, 2017 Admitting Diagnosis unresponsive, unable to control airway,intentional OD, BA (1) Acute respiratory failure ICD Code: J96.00 Diagnosis: Principal (2) Toxic encephalopathy ICD Code: G92 Diagnosis: Principal (3) Major depressive disorder, single episode ICD Code: F32.9 Diagnosis: Principal (4) Major depressive disorder, recurrent ICD Code: F33.9 Diagnosis: Principal (5) Airway compromise ICD Code: J98.8 Diagnosis: Principal (6) Unresponsive state ICD Code: R41.89 Diagnosis: Principal (7) COPD (chronic obstructive pulmonary disease) ICD Code: J44.9 Diagnosis: Principal Procedures intubation/extubation Brief History - From Admission This is a 71-year-old female who per report was brought in by EMS after she admitted to taking it handful of Benadryl and drinking alcohol in an attempt to kill herself. She was somnolent in the emergency department and was intubated for worsening acute hypoxic and hypercarbic respiratory failure. I evaluated the patient emergency department and no additional information can be obtained from the patient as she is obtunded and intubated. CBC/BMP: 01/24/17 0519 01/24/17 0519 Significant Findings Laboratory Tests Test 01/21/17 01/21/17 01/22/17 01/22/17 14:50 15:36 04:45 04:49 Hemoglobin 15.8 GM/DL (11.6-15.3) Hematocrit 47.0 % (35.0-46.0) Potassium Level 3.1 MEQ/L (3.5-5.1) Blood Urea Nitrogen 5 MG/DL (7-18) 6 MG/DL (7-18) Random Glucose 53 MG/DL 56 MG/DL (74-106) (74-106) Acetaminophen Level LESS THAN 2.0 MCG/ML (10.0-30.0) Ethyl Alcohol Level 251 MG/DL (0-5) Blood Gas HCO3 20 mmol/L (22-26) Blood Gas Base Excess -4.0 mmol/L (-2-2) Arterial Blood Partial 31 mmHg (38-42) Pressure CO2 Arterial Blood Partial 438 mmHG Pressure O2 (61-120) Arterial Blood Oxygen Content 21.4 Vol % (12.0-20.0) Monocytes (%) (Auto) 9.5 % (0.0-8.0) Chloride Level 110 MEQ/L (98-107) Creatinine 0.49 MG/DL (0.50-1.00) Calcium Level 8.3 MG/DL (8.5-10.1) Alkaline Phosphatase 33 U/L (45-117) Total Protein 5.7 GM/DL (6.4-8.2) Albumin 2.9 GM/DL (3.4-5.0) Test 01/22/17 01/23/17 01/24/17 06:00 04:42 05:19 Arterial Blood pH 7.46 (7.380-7.420) Arterial Blood Partial 32 mmHg (38-42) Pressure CO2 Arterial Blood Partial 190 mmHg Pressure O2 (61-120) Red Blood Count 3.95 MIL/MM3 (4.00-5.30) Platelet Count 142 TH/MM3 (150-450) Potassium Level 2.8 MEQ/L (3.5-5.1) Blood Urea Nitrogen 4 MG/DL (7-18) 6 MG/DL (7-18) Calcium Level 8.2 MG/DL (8.5-10.1) Troponin I 0.25 NG/ML (0.02-0.05) Imaging Last Impressions Chest X-Ray 01/22/17 0600 Signed Impressions: Service Date/Time: January 03:27 - CONCLUSION: No significant change has occurred. Mele Santo MD Head CT 01/21/17 0000 Signed Impressions: Service Date/Time: Saturday, January 21, 2017 19:56 - CONCLUSION: Normal examination for a patient of this age. Supa To MD PE at Discharge GENERAL: 71 yo female, lying in bed, doesn't appear in acute distress. HEENT: Normocephalic. Atraumatic. Pupils equal, round, reactive, conjugate. Mucous membranes are moist NECK: Trachea is midline. There is no JVD. CHEST: Equal chest rise. Clear to auscultation bilaterally. No wheezes rales or rhonchi CARDIOVASCULAR: RRR. S1, S2 no S4. No appreciable murmurs. ABDOMEN: Soft, nontender, nondistended. No guarding. MUSCULOSKELETAL: Pulses 2+. No peripheral edema. NEUROLOGICAL: Follows commands. Moves all 4 extremities spontaneously, no focal deficits. Pt update on day of discharge Updated: Family h/o lung cancer both parents, smokers PMH COPD, etoh use Social h/o tobacco since age of 40 1PPD. EtOH use 4-6 beers daily. No illicit drug use No surgical history Hospital Course This is a 71-year-old female who per report was brought in by EMS after she admitted to taking it handful of Benadryl and drinking alcohol in an attempt to kill herself. She was somnolent in the emergency department and was intubated for worsening acute hypoxic and hypercarbic respiratory failure. Dr. Ly evaluated the patient emergency department and no additional information can be obtained from the patient as she is obtunded and intubated.The patient was extubated on 01/22/17. Doing well. Electrolytes disturbance corrected. Patient is ambulating in the room, eating fairly well. Satting well on nc. She was discharged to med psych floor to follow up with PCP and consultants. Neuro/psych Toxic metabolic Encephalopathy likely secondary to EtOH/diphenhydramine overdose Suicidal Ideation/Suicide Attempt Alcohol dependence Psych consult appreciated. Stable for med psych transfer. Electrolyte disturbances resolved. patient is eating. [place] Acted Benadryl, alcohol overdose Neuro checks -- avoid long-acting sedating meds Continue thiamine folate and multivitamin daily Drinks 3-5 beers daily and 12 pk on weekends Acetaminophen for fever/pain 1-10 Resp: Acute hypoxic and hypercarbic respiratory failure. Resolved. Extubated 01/22/17, tolerating well, on room air at this time. Albuterol/ipratropium aerosols when necessary Cardiac Currently on LR to 100 cc an hour. DC Not requiring vasopressors and/or antihypertensives GI - Hypoalbuminemia Regular diet Famotidine for GI prophylaxis Docusate sodium/senna for bowel regimen Natarajan catheter in place-DC ID Monitor for infection Heme CBC within normal limits. Muscle skeletal PT/OT evaluate and treat FEN Replace electrolytes as clinically indicated DVT - Enoxaparin GI - Famotidine Stable medically to be discharged to med/psych Pt Condition on Discharge: Stable Discharge Disposition: Disc to Psych Care Fac Discharge Time: > 30 minutes Discharge Instructions DIET: Follow Instructions for: Heart Healthy Diet Activities you can perform: Regular-No Restrictions Follow up Referrals: PCP Follow-up - 2-3 Days New Medications: Albuterol 18 GM Inh (Ventolin Hfa 18 GM Inh) 90 Mcg/Act Aer 2 PUFF INH Q4H PRN SHORTNESS OF BREATH #1 Ref 0 INHALER Budesonide Powder Inh (Pulmicort Flexhaler) 180 Mcg/Act Inhp 180 MCG INH Q12HR Asthma Management #1 Ref 0 INHALER Ipratropium HFA 12.9 GM Inh (Atrovent HFA 12.9 GM Inh) 17 Mcg/Act Aer 2 PUFF INH Q6HR PRN SHORTNESS OF BREATH #1 Ref 0 INHALER Nebulizer (Nebulizer) 1 Mis Mis 1 EA .ROUTE DIRECTED Breathing Treatment #1 Ref 0 EA Nicotine Patch (Nicoderm CQ Patch) 21 Mg/24 Hr Patch 21 MG T-DERMAL DAILY Smoking Cessation #30 Ref 0 PATCH Spacer/Device For Mdi (Inspirease Drug Delivery) 1 Ea Mis 1 EA .ROUTE DIRECTED #1 Ref 0 EA Thiamine HCl (Gnp Vitamin B-1) 100 Mg Tab 100 MG PO DAILY mvt #30 TAB Lupe Castle MD Jan 24, 2017 10:23
[2017-01-24] MEDS ORDERED: NICO21DI6 T-DERMAL (11:31)
[2017-01-24] MEDS ORDERED: IPRA17I INH (11:31)
[2017-01-24] MEDS ORDERED: PULM180I INH (11:31)
[2017-01-24] MEDS ORDERED: VENTAER INH (11:31)
[2017-01-24] MEDS ORDERED: NEBULIZER1 MI1 (11:31)
[2017-01-24] MEDS ORDERED: INSPIREASE DRUG1 EA (11:31)
[2017-01-25] MEDS ORDERED: THIAMINE HCL 100 MG TAB PO SCH (09:00)
== END 2017-01-24 15:50 | DRG 917 ==
LOC: NEPE 14:14 → NEDA 16:56 → HIMN 21:35
PROVIDERS: ADMIT Hospitalist; ATTEND Hospitalist
PROC: 0BH17EZ Insertion of Endotracheal Airway into Trachea, Via Natural or Artificial Opening (ICD-10-PCS; principal; 2017-01-21)
PROC: 5A1945Z Respiratory Ventilation, 24-96 Consecutive Hours (ICD-10-PCS; 2017-01-21)
DX: T45.0X2A Poisoning by antiallergic and antiemetic drugs, intentional self-harm, initial encounter (principal); G92 Toxic encephalopathy; J96.01 Acute respiratory failure with hypoxia; F32.2 Major depressive disorder, single episode, severe without psychotic features; E87.6 Hypokalemia; T51.0X2A Toxic effect of ethanol, intentional self-harm, initial encounter; Y90.8 Blood alcohol level of 240 mg/100 ml or more; J44.9 Chronic obstructive pulmonary disease, unspecified; E88.09 Other disorders of plasma-protein metabolism, not elsewhere classified
CPT/HCPCS: 31500; 36600; 51702; 70450; 71010; 80048; 80053; 80307; 82805; 82948; 83735; 84100; 84132; 84439; 84443; 84481; 84484; 85025; 85027; 87641; 93005; 94002; 94003; 94150; 94640; 94664; 96365; J0330; J1650; J3010; J3411; J3475; J3480; J7030; J7040; J7120

== ENCOUNTER 2017-01-24 14:00 | Inpatient (IN) | payer OTHER, MEDICAID, MEDICARE ==
[~2017-01-24 14:00] MED LIST: GNP100TA3 PO; INSPIREASE DRUG1 EA; IPRA17I INH; NEBULIZER1 MI1; NICO21DI6 T-DERMAL; PULM180I INH; VENTAER INH
[2017-01-24] MEDS: THIAMINE HCL 100 MG TAB PO SCH (17:30)
[2017-01-24] MEDS ORDERED: ALBUTEROL SULFATE 90 MCG/ACT HFA 8 GM INHALER INH PRN (17:30)
[2017-01-24] MEDS: NICOTINE 21 MG/24 HR PATCH T-DERMAL SCH (17:45)
[2017-01-24] MEDS ORDERED: LORazepam 1 MG TAB PO PRN (17:45)
[2017-01-24] MEDS ORDERED: LORazepam 2 MG/ML VIAL IM PRN ×2 (17:45)
[2017-01-24] MEDS ORDERED: MAGNESIUM HYDROXIDE SUSP 30 ML CUP PO PRN (17:45)
[2017-01-24] MEDS ORDERED: ACETAMINOPHEN 325 MG TAB PO PRN (17:45)
[2017-01-24] MEDS ORDERED: FLUMAZENIL 0.5 MG/5 ML VIAL IV PUSH PRN (17:45)
[2017-01-24] MEDS ORDERED: LORazepam 2 MG/ML VIAL IV PUSH PRN ×4 (17:45)
[2017-01-24] MEDS ORDERED: LORazepam 0.5 MG TAB PO PRN (17:45)
[2017-01-24] MEDS ORDERED: ALUMINUM/MAGNESIUM/SIMETH 30 ML CUP PO PRN (17:45)
[2017-01-24] MEDS ORDERED: LORazepam 2 MG TAB PO PRN (17:45)
[2017-01-24] MEDS ORDERED: RESP: IPRATROPIUM 0.5 MG/2.5 ML NEB NEB PRN (18:30)
[2017-01-24] MEDS ORDERED: BUDESONIDE 180 MCG INH SCH (21:00)
[2017-01-25 05:19] VITALS: BP 146/78; PULSE 95; RESP 16; TEMP 99.3; O2SAT 97
[2017-01-25] MEDS: NICOTINE 21 MG/24 HR PATCH T-DERMAL SCH (08:09)
[2017-01-25] MEDS: THIAMINE HCL 100 MG TAB PO SCH (08:40)
[2017-01-25 12:52] LABS: ANION GAP 9 MEQ/L (5-15); BLOOD UREA NITROGEN 11 MG/DL (7-18); CHLORIDE 101 MEQ/L (98-107); GLOMERULAR FILTRATION RATE 107 ML/MIN (>89); POTASSIUM 3.8 MEQ/L (3.5-5.1); SODIUM (NA) 138 MEQ/L (136-145)
[2017-01-25 12:54] LABS: HDL CHOLESTEROL 102.7 MG/DL (40.0-60.0); LDL CHOLESTEROL 55 MG/DL (0-99)
--- NOTE | 2017-01-25 16:24 | HHI.HP ---
Provisional Diagnosis Admission Date Jan 24, 2017 at 14:00 [place] I. Major depressive disorder, recurrent, severe, without psychosis Certification of Person's Competence To Provide Express and Informed Consent I have personally examined Eric Gold , a person being served at [facility] on, Jan 25, 2017 16:15. Express and informed consent means consent voluntarily given in writing, by a competent person, after sufficient explanation and disclosure of the subject matter involved to enable the person to make a knowing and willful decision without any element of force, fraud, deceit, duress, or other form of constraint or coercion. This person is 18 years of age or older, is not now known to be incompetent to consent to treatment with a guardian advocate, and does not have a health care surrogate or proxy currently making medical treatment decisions. I have found this person to be one of the following: [x] Competent to provide express and informed consent, as defined above, for voluntary admission to this facility and is competent to provide express and informed consent for treatment. He/she has the consistent capacity to make well reasoned, willful, and knowing decisions concerning his or her medical or mental health treatment. The person fully and consistently understands the purpose of the admission for examination/placement and is fully capable of personally exercising all rights assured under [place] Incompetent to provide express and informed consent to voluntary admission, and this is incompetent to provide express and informed consent to treatment. The person must be transferred to involuntary status and a petition for a guardian advocate filed with the Circuit Court. [] Refusing to provide express and informed consent to voluntary admission but is competent to provide express and informed consent for treatment. The person must be discharged or transferred to involuntary status. Form shall be completed within 24 hours of a person's arrival at the receiving facility and filed in the clinical record of each person: 1. Admitted on a voluntary basis 2. Permitted to provide express and informed consent to his/her own treatment 3. Allowed to transfer from involuntary to voluntary status 4. Prior to permitting a person to consent to his or her own treatment after having been previously found incompetent to consent to treatment. History of Present Illness Capacity: Has Capacity HPI My initial encounter with the patient on 01/23/2017 ICU: The patient is a 71- year-old woman, domiciled in [place] with her son, also, supported by nursing home benefit, with psychiatric history of major depressive disorder, 2 previous psychiatric hospitalizations, the last hospitalization was 4 years ago , she doesn't have an established outpatient care, previous suicidal attempts, she is on Prozac 40 mg, trazodone 100 mg prescribed by PCP, medical history of COPD, HTN, who per report was brought in by EMS after she admitted to taking it handful of Benadryl and drinking alcohol in an attempt to kill herself. She was somnolent in the emergency department and was intubated for worsening acute hypoxic and hypercarbic respiratory failure. Dr. Ly evaluated the patient emergency department and no additional information can be obtained from the patient as she is obtunded and intubated. Patient was seen today for psychiatric evaluation, patient is calm, cooperative and pleasant. Port's ongoing depression for the last month, she says that she feels that she is giving up. Feels that her life is going downhill, she cannot identify an acute stressor for this depression. But, she says that she feels useless, isolated, very lonely, with increased sense of worthlessness, increased sensitivity to rejection and frustration, frequent suicidal thoughts with a plan of overdosing. She also has been increasing her alcohol use in order to "forget everything and going to sleep". Patient says that yesterday when she overdosed she was drunk "but I wanted to ". At This moment patient says that "I am blessed to be alive, but I needed help". Patient is fully oriented 3, with full attention span, no concentration deficits, no fluctuation of consciousness. Patient denies the use of illicit drugs, she reports increased use of alcohol in the last 2 months. She says that she takes 3-4 beers per day. She has history of withdrawal in the past, but she hasn't have any withdrawal symptoms in the last months. No withdrawal symptoms visible at this moment. Today in the med psych unit: Patient is seen with nurse in charge Zoey, patient continues to endorse in dermatology of depression, mostly consisting in guiltiness, increased sense of worthlessness, low self-esteem, increased sensitivity to rejection and suicidal thoughts. However, patient denies that she wants to , she denies suicidal ideation and plan at this moment. Patient says that he was a huge mistake to try to commit suicide. She says that at some level she is happy that she survived. Patient says that she is committed to get better, to take a medication for depression and tried to restart her life. She says that is difficult for her to adjust in her new life in [place] and she misses [place]. Patient is fully oriented 3, no fluctuation of consciousness, no delirium present at this moment. Review of Systems Constitutional: DENIES: Diaphoretic episodes, Fatigue, Fever, Weight gain, Weight loss, Chills, Dizziness, Change in appetite, Night Sweats Endocrine: DENIES: Abnorml menstrual pattern, Heat/cold intolerance, Polydipsia , Polyuria, Polyphagia Eyes: DENIES: Blurred vision, Diplopia, Eye inflammation, Eye pain, Vision loss , Photosensitivity, Double Vision Ears, nose, mouth, throat: DENIES: Tinnitus, Hearing loss, Vertigo, Nasal discharge, Oral lesions, Throat pain, Hoarseness, Ear Pain, Running Nose, Epistaxis, Sinus Pain, Toothache, Odynophagia Respiratory: DENIES: Apneas, Cough, Snoring, Wheezing, Hemoptysis, Sputum production, Shortness of breath Cardiovascular: DENIES: Chest pain, Palpitations, Syncope, Dyspnea on Exertion , PND, Lower Extremity Edema, Orthopnea, Claudication Gastrointestinal: DENIES: Abdominal pain, Black stools, Bloody stools, Constipation, Diarrhea, Nausea, Vomiting, Difficulty Swallowing, Anorexia Musculoskeletal: DENIES: Joint pain, Muscle aches, Stiffness, Joint Swelling, Back pain, Neck pain Hematologic/lymphatic: DENIES: Bruising, Lymphadenopathy Immunologic/allergic: DENIES: Eczema, Urticaria Neurologic: DENIES: Abnormal gait, Headache, Localized weakness, Paresthesias, Seizures, Speech Problems, Tremor, Poor Balance Psychiatric: COMPLAINS OF: Depression, DENIES: Anxiety, Confusion, Mood changes, Hallucinations, Agitation, Suicidal Ideation, Homicidal Ideation, Delusions Past Psych History Violence risk - self (6 mos) Increased Substance Abuse History Drugs/Alcohol past 12 months Patient reports use of alcohol. Past Family Social History Coded Allergies: No Known Allergies (Unverified , 01/21/17) Active Scripts Budesonide Powder Inh (Pulmicort Flexhaler)180 Mcg/Act [id number] Mcg INH Q12HR # 1 INHALER Ref 0 Prov:Lupe Castle MD 01/24/17 Spacer/Device For Mdi (Inspirease Drug Delivery)1 Ea Mis #1 EA .ROUTE DIRECTED Ref 0 Prov:Lupe Castle MD 01/24/17 Nebulizer 1 Mis Mis #1 EA .ROUTE DIRECTED Ref 0 Prov:Lupe Castle MD 01/24/17 Nicotine Patch (Nicoderm CQ Patch)21 Mg/24 Hr Patch21 Mg T-DERMAL DAILY #30 PATCH Ref 0 Prov:Lupe Castle MD 01/24/17 Ipratropium HFA 12.9 GM Inh (Atrovent HFA 12.9 GM Inh)17 Mcg/Act Aer2 Puff INH Q6HR PRN (SHORTNESS OF BREATH) #1 INHALER Ref 0 Prov:Lupe Castle MD 01/24/17 Albuterol 18 GM Inh (Ventolin Hfa 18 GM Inh)90 Mcg/Act Aer2 Puff INH Q4H PRN ( SHORTNESS OF BREATH) #1 INHALER Ref 0 Prov:Lupe Castle MD 01/24/17 Thiamine HCl (Gnp Vitamin B-1)100 Mg Nrx259 Mg PO DAILY #30 TAB Prov:Lupe Castle MD 01/24/17 Current Medications Medications (Trade) Dose Ordered Sig/Erick Route Start Time Stop Time Status Last Admin (Proair Hfa Inh) 2 puff Q4H PRN INH 01/24/17 17:30 (Vitamin B1) 100 mg DAILY PO 01/24/17 17:30 01/25/17 08:40 Patient Own Medication PT OWN MED: (Budeson... BID INH 01/24/17 21:00 Hold (Ativan) 1 mg Q6H PRN PO 01/24/17 17:45 01/25/17 08:40 (Ativan Inj) 1 mg Q6H PRN IM 01/24/17 17:45 (Ativan) 0.5 mg Q12H PRN PO 01/24/17 17:45 (Ativan Inj) 0.5 mg Q12H PRN IM 01/24/17 17:45 (Tylenol) 650 mg Q4H PRN PO 01/24/17 17:45 (Milk Of Magnesia Liq) 30 ml DAILY PRN PO 01/24/17 17:45 (Mag-Al Plus Susp Liq) 30 ml Q6H PRN PO 01/24/17 17:45 (Habitrol 21 Mg Patch.24 Hr) 1 patch DAILY T-DERMAL 01/24/17 17:45 (Romazicon Inj) 0.2 mg Q1M PRN IV PUSH 01/24/17 17:45 (Ativan Inj) 1 mg Q4H PRN IV PUSH 01/24/17 17:45 (Ativan) 2 mg Q2H PRN PO 01/24/17 17:45 (Ativan Inj) 2 mg Q2H PRN IV PUSH 01/24/17 17:45 (Ativan Inj) 2 mg Q1H PRN IV PUSH 01/24/17 17:45 (Ativan Inj) 2 mg Q15M PRN IV PUSH 01/24/17 17:45 01/24/17 22:34 Family History Patient says her mother was bipolar, and she has a sister with bipolar disorder Social History Patient was born and raised in [place], she has been living with her son in [place] in the last 6 months, she is , she has 3 kids, supported by nursing home benefits, her highest level of education is high school Physical Exam A physical exam the patient does not present any tremors, no EPS, no withdrawal symptoms, no psychomotor agitation or retardation, no gait disturbance Vital Signs Vital Signs Date Time Temp Pulse Resp B/P Pulse Ox O2 Delivery O2 Flow Rate FiO2 01/25/17 05:19 99.3 95 16 146/78 97 Mental Status Examination Appearance skinny woman, age appearing, [facility], calm and cooperative Speech: Unremarkable Orientation: x3 Memory: Unremarkable Thought Process: Logical Thought Content: Unremarkable Language Fluent and spontaneous Fund of Knowledge Adequate for level of education Hallucination Type: None Attention and Concentration: Good Suicidal Ideation: Yes Previous Suicide Attempts: Yes Homicidal Ideation: No Previous Homicide Attempts: No Insight: Poor Affect: Sad Mood: Sad Motor Activity: Normal gait Assessment & Plan Problem List: (1) Major depressive disorder, recurrent Assessment & Plan: The patient is a 71-year-old woman with psychiatric history of major depressive disorder, 2 previous psychiatric hospitalizations, the last hospitalization was 4 years ago, she doesn't have an established outpatient care, previous suicidal attempts, she is on Prozac 40 mg , trazodone 100 mg prescribed by PCP, medical history of COPD, HTN, who per report was brought in by EMS after she admitted to taking it handful of Benadryl and drinking alcohol in an attempt to kill herself. She was somnolent in the emergency department and was intubated for worsening acute hypoxic and hypercarbic respiratory failure. Dr. Ly evaluated the patient emergency department and no additional information can be obtained from the patient as she is obtunded and intubated. Patient was seen today for psychiatric evaluation, patient is calm, cooperative. Patient reports several weeks of ongoing depressive symptoms, that have increased in severity, intensity and frequency in the last week. Symptoms consist on decreased appetite, lost with, increased sensitivity to rejection and frustration, hopelessness, helplessness, sense of worthlessness, insomnia, intrusive suicidal thoughts and a recent suicidal attempt by overdosing with Benadryl and alcohol. Patient is unable to identify an acute stressor. Symptoms of depression may be exacerbated by increased use of alcohol. Will order TSH, T3, T4 to completely rule out medical reasons of depression exacerbation. Patient is an acute danger to herself due to her level of depression and recent lethal suicidal attempt. She needs psychiatric hospitalization for stabilization. She is willing to sign voluntary admission. We'll start Remeron 15 mg at bedtime for depression and to improve appetite. ICD Code: F33.9 Assessment & Plan Estimated LOS: days Trae Pan MD Jan 25, 2017 16:24
[2017-01-25 18:00] VITALS: BP 136/81; PULSE 112; RESP 18; TEMP 98.1; O2SAT 96
[2017-01-25] MEDS ORDERED: MIRTAZAPINE 15 MG TAB PO SCH (21:00)
[2017-01-26 04:54] VITALS: PULSE 57; RESP 16; TEMP 97
[2017-01-26 04:55] VITALS: BP 160/98; PULSE 127; RESP 16; TEMP 97.6; O2SAT 95
--- NOTE | 2017-01-26 09:33 | HHI.PYPN ---
Subjective Remarks Patient is seen for psychiatric reevaluation today along with nursing charge Hemanth and social media assistant Lyudmila, patient is found in her bed, she was sleeping, but easily arousable, continues to show significant symptomatology of depression , sad mood, intrusive thoughts about worthlessness, decreased appetite, generalized pessimism. However, patient is able to reflect about her recent suicidal attempt, she says the most probably that was a mistake, because she has too many reasons to live for. However, for her is difficult to face the new changes in her life. She misses her family in [place] and she describes herself as a slow transitioner. Patient also is reflectful about her recent increase in alcohol use and she is able to express some insightful thoughts about the impact of alcohol use in her recent suicidal attempt. Patient expressed her interest in exploring the possibility of restarting naltrexone or Antabuse. Patient is oriented 3, no fluctuation of consciousness , no attention deficit, no gross cognitive impairment present. Compliant with her medications, no somatic and side effects. Review of Systems Other No somatic complaints Objective Alert: Yes [place]: Date, Situation Mood: Depressed Affect: Restricted Memory Intact: Immediate, Recent Hallucinations: Other (no hallucinations) Delusions: No Delusion Type: Other (no delusions elicited) Suicidal: Ideation (no SI) Homicidal: Ideation (no HI) Insight/Judgment Fair Labs Test 01/25/17 11:54 Sodium Level 138 MEQ/L Potassium Level 3.8 MEQ/L Chloride Level 101 MEQ/L Carbon Dioxide Level 28.0 MEQ/L Anion Gap 9 MEQ/L Blood Urea Nitrogen 11 MG/DL Creatinine 0.56 MG/DL Estimat Glomerular Filtration 107 ML/MIN Rate Random Glucose 86 MG/DL Calcium Level 9.5 MG/DL Triglycerides Level 103 MG/DL Cholesterol Level 178 MG/DL LDL Cholesterol 55 MG/DL HDL Cholesterol 102.7 MG/DL Cholesterol/HDL Ratio 1.73 RATIO Vitals/IOs Vital Signs Date Time Temp Pulse Resp B/P Pulse Ox O2 Delivery O2 Flow Rate FiO2 01/26/17 04:55 97.6 127 16 160/98 95 Intake and Output 01/25/17 01/25/17 01/25/17 07:59 15:59 23:59 Intake Total 170 ml 360 ml 840 ml Balance 170 ml 360 ml 840 ml Assessment & Plan Problem List: (1) Major depressive disorder, recurrent Assessment & Plan: Patient continues to show significant symptomatology of depression and suicidal thoughts. Patient has a recent highly lethal suicidal attempt in the context of acute social and emotional stressors and increased use of alcohol. Patient was able to contract for safety in the unit. We will increase Remeron to 30 mg to help with depression. Might consider naltrexone 50 mg to decrease alcohol cravings. Extensive support, motivation and psychoeducation provided. ICD Code: F33.9 Assessment & Plan Estimated LOS: days Justification for Cont. Inpt. Patient has a very high risk to decompensate at a lower level of care. Trae Pan MD Jan 26, 2017 09:33
[2017-01-26] MEDS: NICOTINE 21 MG/24 HR PATCH T-DERMAL SCH (09:35)
[2017-01-26] MEDS: THIAMINE HCL 100 MG TAB PO SCH (09:35)
[2017-01-26 16:39] LABS: HEMOGLOBIN A1a 0.8 %; HEMOGLOBIN A1b 1.2 %; HEMOGLOBIN F 0.3 %; HEMOGLOBIN P3 3.5 %
[2017-01-26 18:34] VITALS: BP 115/68; PULSE 100; RESP 16; TEMP 97.3; O2SAT 97
[2017-01-26] MEDS ORDERED: MIRTAZAPINE 15 MG TAB PO SCH (21:00)
[2017-01-27 05:21] VITALS: BP 137/85; PULSE 100; RESP 16; TEMP 98; O2SAT 95
[2017-01-27] MEDS: THIAMINE HCL 100 MG TAB PO SCH (09:26)
[2017-01-27] MEDS: NICOTINE 21 MG/24 HR PATCH T-DERMAL SCH (09:26)
[2017-01-27] MEDS ORDERED: MIRTA15 PO (09:26)
--- NOTE | 2017-01-27 09:36 | HHI.DS ---
Psychiatry Discharge Summary Inpatient Psychiatric care?: No Advance Directive: No Reason Not Provided: Due to Patient Condition Mental Health AdvanceDirective: No Health Care Proxy: No Admission Admission Date Jan 24, 2017 at 14:00 Admission Diagnosis: (1) Major depressive disorder, recurrent ICD Code: F33.9 Brief History My initial encounter with the patient on 01/23/2017 ICU: The patient is a 71- year-old woman, domiciled in [place] with her son, also, supported by correction benefit, with psychiatric history of major depressive disorder, 2 previous psychiatric hospitalizations, the last hospitalization was 4 years ago , she doesn't have an established outpatient care, previous suicidal attempts, she is on Prozac 40 mg, trazodone 100 mg prescribed by PCP, medical history of COPD, HTN, who per report was brought in by EMS after she admitted to taking it handful of Benadryl and drinking alcohol in an attempt to kill herself. She was somnolent in the emergency department and was intubated for worsening acute hypoxic and hypercarbic respiratory failure. Dr. Ly evaluated the patient emergency department and no additional information can be obtained from the patient as she is obtunded and intubated. Patient was seen today for psychiatric evaluation, patient is calm, cooperative and pleasant. Port's ongoing depression for the last month, she says that she feels that she is giving up. Feels that her life is going downhill, she cannot identify an acute stressor for this depression. But, she says that she feels useless, isolated, very lonely, with increased sense of worthlessness, increased sensitivity to rejection and frustration, frequent suicidal thoughts with a plan of overdosing. She also has been increasing her alcohol use in order to "forget everything and going to sleep". Patient says that yesterday when she overdosed she was drunk "but I wanted to ". At This moment patient says that "I am blessed to be alive, but I needed help". Patient is fully oriented 3, with full attention span, no concentration deficits, no fluctuation of consciousness. Patient denies the use of illicit drugs, she reports increased use of alcohol in the last 2 months. She says that she takes 3-4 beers per day. She has history of withdrawal in the past, but she hasn't have any withdrawal symptoms in the last months. No withdrawal symptoms visible at this moment. Today in the med psych unit: Patient is seen with nurse in charge Zoey, patient continues to endorse in dermatology of depression, mostly consisting in guiltiness, increased sense of worthlessness, low self-esteem, increased sensitivity to rejection and suicidal thoughts. However, patient denies that she wants to , she denies suicidal ideation and plan at this moment. Patient says that he was a huge mistake to try to commit suicide. She says that at some level she is happy that she survived. Patient says that she is committed to get better, to take a medication for depression and tried to restart her life. She says that is difficult for her to adjust in her new life in [place] and she misses [place]. Patient is fully oriented 3, no fluctuation of consciousness, no delirium present at this moment. Tobacco Use In Past 30 Days: 5 or More Cigarettes/Day Alcohol Use: 4 or More Times Per Week Hospital Course Patient was hospitalized [facility] after a suicidal attempt with alcohol and overdosing with Benadryl. Patient was transferred to the ICU which she was taken care about 2-3 days. Consulted to psychiatry due to her suicidal attempt. Patient immediately admitted that she wanted to in her suicidal attempt and accepted a voluntary admission in the med psych unit. In the med psych unit to psychiatry and psychosocial assessment were done. Appropriate safety measures taken. At the beginning patient endorses depression, but she was remorseful about her recent suicidal attempt. She admitted that she was drunk when she did it. However she was able to admit that she has been very stressed and depressed after moving from [place] to [place]. Patient was started in antidepressants, Remeron 15 milligrams at bedtime, that was titrated up the patient could tolerate and was needed. She was also started individual and group psychotherapy, substance abuse counseling, and she showed a good response to this regimen. She was also in [facility]. She was widely educated about the importance of avoiding alcohol, and engaging in a rehabilitation program. Patient accepted to go to addiction counseling evaluation was discharged in [facility]. At the moment of the evaluation patient denies depressive symptoms, she seems to be motivated to continue her psychotropics and to follow psychiatric recommendations, she denies suicidal or homicidal ideation, she denies visual and auditory hallucinations. Patient is oriented 3. Results Blood Pressure 137 / 85 Vital Signs Date Time Temp Pulse Resp B/P Pulse Ox O2 Delivery O2 Flow Rate FiO2 01/27/17 05:21 98.0 100 16 137/85 95 Laboratory Tests Test 01/25/17 11:54 HDL Cholesterol 102.7 MG/DL (40.0-60.0) Laboratory Results Test 01/25/17 11:54 Hemoglobin A1c 5.1 % (4.3-6.0) Triglycerides Level 103 MG/DL (42-150) Cholesterol Level 178 MG/DL (120-200) LDL Cholesterol 55 MG/DL (0-99) HDL Cholesterol 102.7 MG/DL (40.0-60.0) Summary of Procedures No procedures done Pending results at discharge: No Medications # of Antipsychotic meds at D/C: 0 Approp Antipsych med options 1 - Minimum of three failed multiple trials of monotherapy. 2 - Documented plan to taper to monotherapy due to previous use of multiple meds OR cross-taper in progress at D/C. 3 - Documentation of augmentation of Clozapine. 4 - Justification other than those listed in allowable values 1-3, document here : Discharge Discharge Date: Jan 27, 2017 Discharge Diagnosis: (1) Major depressive disorder, recurrent ICD Code: F33.9 Mental Status Exam at Disch Elderly woman, age appearing, good hygiene, [facility], she is calm, cooperative and pleasant. Her speech is fluent and spontaneous, her mood is "perfectly fine", affect is congruent with mood, thought processes logical, coherent and relevant. Thought content is devoid of suicidal ideation, homicidal ideation, visual and auditory hallucinations. No delusions or paranoia present. Insight, impulse control and judgment are good. Cognition is intact Pt Condition on Discharge: Stable Discharge Disposition: Discharge Home Discharge Instructions Diet Instructions: Heart Healthy Diet Activities you can perform: Weight Bearing as [place] Scheduled Appointment: Reece Jones Discharge Time > 30 minutes Discharge/Advance Care Plan Health Problems: (1) Major depressive disorder, recurrent Goals to promote your health * To prevent worsening of your condition and complications * To maintain your health at the optimal level Directions to meet your goals Take your medications as prescribed Follow your dietary instruction Follow activity as directed Keep your appointments as scheduled Take your immunizations and boosters as scheduled If your symptoms worsen call your PCP, if no PCP go to Urgent Care Center or Emergency Room For 24/7 questions related to your inpatient stay or results of tests pending at discharge, please contact Dr. Trae Pan at Smoking is Dangerous to Your Health. Avoid second hand smoking Trae Pan MD Jan 27, 2017 09:36
== END 2017-01-27 12:30 | disposition home or self-care (01) | DRG 885 ==
LOC: H4EA 14:00
PROVIDERS: ADMIT Psychiatry & Neurology Psychiatry; ATTEND Psychiatry & Neurology Psychiatry
DX: F33.9 Major depressive disorder, recurrent, unspecified (principal)
CPT/HCPCS: 80048; 80061; 83036; J2060